=== PATIENT | female | born 1990 | race Native Hawaiian/Other Pacific Islander ===

== ENCOUNTER 2018-03-13 10:44 | Emergency (ER) | payer BC ==
[~2018-03-13] VITALS: Ht 154.9 cm; Wt 50.3 kg
--- NOTE | 2018-03-13 11:33 | NUR ---
Patient discharged to home in stable conditon. Written and verbal after care instructions given. Patient verbalizes understanding of instructions.pt walks in stady gait, no sign of distress.
== END 2018-03-13 11:39 | disposition home or self-care (01) ==
LOC: ER 10:44
DX: B00.1 Herpesviral vesicular dermatitis (principal)
CPT/HCPCS: A4663